=== PATIENT | male | born 2000 ===

== ENCOUNTER 2022-02-02 08:38 | Emergency (ER) | payer BC, OTHER ==
[~2022-02-02] VITALS: Ht 182.9 cm; Wt 99.8 kg
[~2022-02-02 08:38] MED LIST: ALBU90OI INH; AMOCLA250S PO; ANTIBIOTIC; CEPH500 PO; METPRE4DP PO; Norco 5-325 Ta1 EACH PO; ONDA8ODT MM; OTC COUGH MED; PRED10 PO; PRED20 PO; Prednisone20 MG PO; SPACE CHAMBER1 EACH MC; STEROID; TRIA80TC TOP; TRIM100S PR; Triamcinolone A15 GM TOP; UNK ALLERGY MED; [UNRECOGNIZED DRUG - REMARK]
[2022-02-02] MEDS ORDERED: TRIDERM28.4 GM TOP (09:16)
== END 2022-02-02 09:27 | disposition home or self-care (01) ==
LOC: ER 08:38
DX: L23.81 Allergic contact dermatitis due to animal (cat) (dog) dander (principal); J45.909 Unspecified asthma, uncomplicated; Z79.899 Other long term (current) drug therapy
CPT/HCPCS: J3301

== ENCOUNTER 2022-02-13 16:24 | Emergency (ER) | payer BC, OTHER ==
[~2022-02-13] VITALS: Ht 167.6 cm; Wt 99.8 kg
[~2022-02-13 16:24] MED LIST changes: +TRIDERM28.4 GM TOP
[2022-02-13] MEDS ORDERED: Prednisone20 MG PO (19:09)
== END 2022-02-13 19:25 | disposition home or self-care (01) ==
LOC: ER 16:24
DX: L25.9 Unspecified contact dermatitis, unspecified cause (principal); J45.909 Unspecified asthma, uncomplicated; Z79.899 Other long term (current) drug therapy
CPT/HCPCS: J7512

== ENCOUNTER 2022-03-10 12:56 | Emergency (ER) | payer BC, OTHER ==
[~2022-03-10] VITALS: Ht 177.8 cm; Wt 102.1 kg
[2022-03-10] MEDS ORDERED: ZYRTEC10 M2 PO (13:08)
[2022-03-10] MEDS ORDERED: METPRE4DP PO (13:08)
== END 2022-03-10 13:10 | disposition home or self-care (01) ==
LOC: ER 12:56
DX: L23.5 Allergic contact dermatitis due to other chemical products (principal); Z79.52 Long term (current) use of systemic steroids; Z91.09 Other allergy status, other than to drugs and biological substances
CPT/HCPCS: 99282

== ENCOUNTER 2022-03-18 08:20 | Emergency (ER) | payer BC, OTHER ==
[~2022-03-18] VITALS: Ht 175.3 cm; Wt 102.1 kg
[~2022-03-18 08:20] MED LIST changes: +ZYRTEC10 M2 PO
[2022-03-18] MEDS ORDERED: METPRE4DP PO (10:13)
[2022-03-18] MEDS ORDERED: AMOCLA875 PO (10:13)
== END 2022-03-18 10:14 | disposition home or self-care (01) ==
LOC: ER 08:20
DX: K04.7 Periapical abscess without sinus (principal); L25.9 Unspecified contact dermatitis, unspecified cause
CPT/HCPCS: 99282

== ENCOUNTER 2022-03-26 07:32 | Emergency (ER) | payer BC, OTHER ==
[~2022-03-26] VITALS: Ht 175.3 cm; Wt 99.8 kg
[~2022-03-26 07:32] MED LIST changes: +AMOCLA875 PO
[2022-03-26] MEDS ORDERED: Vistaril50 MG PO (10:19)
[2022-03-27] MEDS ORDERED: HYDHCL25 PO (08:26)
== END 2022-03-26 10:20 | disposition home or self-care (01) ==
LOC: ER 07:32
DX: L25.9 Unspecified contact dermatitis, unspecified cause (principal); J45.909 Unspecified asthma, uncomplicated; Z91.048 Other nonmedicinal substance allergy status; Z79.899 Other long term (current) drug therapy
CPT/HCPCS: 99282

== ENCOUNTER 2022-04-09 14:31 | Emergency (ER) | payer BC, OTHER ==
[~2022-04-09] VITALS: Ht 175.3 cm; Wt 97.5 kg
[~2022-04-09 14:31] MED LIST changes: +HYDHCL25 PO; +Vistaril50 MG PO
[2022-04-09] MEDS ORDERED: ALLERCLEAR10 MG PO (15:55)
[2022-04-09] MEDS ORDERED: Prednisone50 MG PO (15:55)
== END 2022-04-09 16:02 | disposition home or self-care (01) ==
LOC: ER 14:31
DX: L23.9 Allergic contact dermatitis, unspecified cause (principal); Z79.52 Long term (current) use of systemic steroids; Z79.899 Other long term (current) drug therapy
CPT/HCPCS: A9270; J7512

== ENCOUNTER 2022-04-18 14:21 | Emergency (ER) | payer OTHER ==
[~2022-04-18] VITALS: Ht 177.8 cm; Wt 102.1 kg
[~2022-04-18 14:21] MED LIST changes: +ALLERCLEAR10 MG PO; +Prednisone50 MG PO
[2022-04-18] MEDS ORDERED: CEPH500 PO (18:13)
== END 2022-04-18 18:48 | disposition home or self-care (01) ==
LOC: ER 14:21
DX: H66.42 Suppurative otitis media, unspecified, left ear (principal); J45.909 Unspecified asthma, uncomplicated; Z91.048 Other nonmedicinal substance allergy status; Z79.899 Other long term (current) drug therapy
CPT/HCPCS: A9270

== ENCOUNTER → 2023-05-07 | Outpatient (CLI) | payer OTHER | END | disposition home or self-care (01) | LOC: LAB 10:30 → LAB SHORT 10:30 | DX: L02.91 Cutaneous abscess, unspecified (principal) | CPT/HCPCS: 87070; 87075; 87077; 87147; 87186; 87205 ==

== ENCOUNTER 2023-10-05 05:10 | Emergency (ER) | payer OTHER ==
[~2023-10-05] VITALS: Ht 175.3 cm; Wt 99.8 kg
[2023-10-05] MEDS ORDERED: ALLERGY RELIEF5 M1 PO (05:59)
[2023-10-05] MEDS ORDERED: METPRE4DP PO (07:21)
[2023-10-05 07:38] VITALS: BP 119/83
== END 2023-10-05 07:39 | disposition home or self-care (01) ==
LOC: ER 05:10
DX: L30.9 Dermatitis, unspecified (principal); J45.909 Unspecified asthma, uncomplicated; Z91.048 Other nonmedicinal substance allergy status; Z79.899 Other long term (current) drug therapy
CPT/HCPCS: 99282

== ENCOUNTER 2024-11-13 11:50 | Emergency (ER) | payer OTHER ==
[~2024-11-13] VITALS: Ht 180.3 cm; Wt 104.3 kg
[~2024-11-13 11:50] MED LIST changes: +ALLERGY RELIEF5 M1 PO
[2024-11-13] MEDS ORDERED: Ondansetron HCl 2 MG / ML 2ML Vial IV ONE (12:00)
[2024-11-13 12:19] LABS: BASOPHILS ABSOLUTE AUTO 0.04 K/mm3 (0.00-0.23); BASOPHILS PERCENT AUTO 0 % (0-2); EOSINOPHILS ABSOLUTE AUTO 0.74 K/mm3 (0.00-0.68); EOSINOPHILS PERCENT AUTO 8 % (0-6); Hematocrit 48.7 % (37.0-53.0); Hemoglobin 16.7 g/dL (13.5-17.5); IMMATURE GRAN ABSOLUTE AUTO 0.03 K/mm3 (0.00-0.10); IMMATURE GRAN PERCENT AUTO 0 % (0-1); LYMPHOCYTES ABSOLUTE AUTO 1.62 K/mm3 (0.84-5.20); LYMPHOCYTES PERCENT AUTO 18 % (21-46); MONOCYTES ABSOLUTE AUTO 0.77 K/mm3 (0.16-1.47); MONOCYTES PERCENT AUTO 9 % (4-13); Mean Corpuscular HGB Conc 34.3 g/dL (31.5-36.5); Mean Corpuscular Volume 82 fL (80-100); NEUTROPHILS ABSOLUTE AUTO 5.89 K/mm3 (1.96-9.15); NEUTROPHILS PERCENT AUTO 65 % (41-73); NRBC ABSOLUTE 0.00 K/mm3 (0.00-0.02); NRBC Auto 0.0 /100 WBC (0.0-0.2); Platelet Count 368 K/mm3 (150-400); RDW Coefficient Variation 12.1 % (11.7-14.2); RDW Standard Deviation 36.4 fL (35.1-46.3)
[2024-11-13 12:37] LABS: Alanine Aminotransfer (ALT/SGP 85.0 U/L (12-78); Albumin, Blood 4.6 g/dL (3.4-5.0); Albumin/Globulin Ratio 1.0 (0.8-1.8); Anion Gap 8.0 mmol/L (3-11); Aspartate Aminotrans (AST/SGOT 31.0 U/L (12-37); Bilirubin, Total 1.0 mg/dL (0.1-1.0); Blood Urea Nitrogen 9.0 mg/dL (8-24); CO2, Blood 21.0 mmol/L (21-32); Calcium, Blood 9.9 mg/dL (8.5-10.1); Chloride, Blood 106.0 mmol/L (98-108); Creatinine, Blood 0.8 mg/dL (0.60-1.20); Globulin, Blood 4.4 g/dL (2.2-4.0); Glucose, Blood 163.0 mg/dL (70-99); Potassium, Blood 3.2 mmol/L (3.5-5.5); Sodium, Blood 132.0 mmol/L (136-145); Total Protein, Blood 9.0 g/dL (6.4-8.2)
[2024-11-13] MEDS ORDERED: Haloperidol Lactate Inj. 5 MG/ML Injection IV ONE ×2 (13:30→15:25)
[2024-11-13] MEDS ORDERED: Ketorolac Tromethamine 15mg Vial IV ONE (13:30)
[2024-11-13] MEDS ORDERED: NS 1,000 ML IV SCH (15:25)
[2024-11-13] MEDS ORDERED: DiphenhydrAMINE HCl 50 MG/ML 1ML Vial IV ONE (15:25)
[2024-11-13] MEDS ORDERED: Pantoprazole Sodium 40 MG Injection IV ONE (15:25)
[2024-11-13 15:26] LABS: Source, Urine Clean Catch
[2024-11-13 15:32] LABS: Bilirubin, Urine Neg (Neg); Color, Urine Yellow (P-Yellow); Glucose Qualitative, Urine Neg (Neg); Ketones, Urine 1+ (Neg); Leukocyte Esterase, Urine Neg (Neg); Protein, Urine 2+ (Neg); Specific Gravity, Urine 1.005 (1.003-1.022); Urobilinogen, Urine NORM (Normal)
[2024-11-13 15:46] VITALS: BP 127/78
[2024-11-13 15:48] LABS: Red Blood Cells, Urine 0-2 /hpf (0-2); White Blood Cells, Urine 0-2 /hpf (0-5)
[2024-11-13 16:03] LABS: Influenza A, PCR NEGATIVE (NEGATIVE); Influenza B, PCR NEGATIVE (NEGATIVE); Resp Syncytial Virus, PCR NEGATIVE (NEGATIVE); SARS-Cov-2 (COVID-19) PCR, MMC NEGATIVE (NEGATIVE)
== END 2024-11-13 16:10 | disposition home or self-care (01) ==
LOC: ER 11:50
PROVIDERS: Physician Assistant
DX: R11.15 Cyclical vomiting syndrome unrelated to migraine (principal); R10.9 Unspecified abdominal pain; Z79.2 Long term (current) use of antibiotics; J45.909 Unspecified asthma, uncomplicated
CPT/HCPCS: 74177; 80053; 81001; 83690; 85025; 87637; 93005; 93010; 96361; 96374-59; 96375; 96376; 99284-25; J1200; J1630; J1885; J2405; J2470; J7030; Q9967